=== PATIENT | female | born 1925 | race Caucasian/White ===

== ENCOUNTER → 2016-05-14 | Outpatient (CLI) | payer OTHER ==
[~2016-05-14] MED LIST: AMOX875T PO; MULT-190 PO; MULT-506 PO; OMEG10007 PO
--- NOTE | 2016-05-14 12:19 | DIAGNOSTIC IMAGING REPORT ---
CHEST 2 VIEWS ROUTINE CLINICAL HISTORY: Acute upper respiratory infection COMPARISON STUDY: 01/16/2014 FINDINGS: The cardiac and mediastinal contours are normal. There is no evidence of focal pulmonary consolidation. There is no evidence of failure. No pleural effusions are visualized.[ There is a calcified right lower lung zone granuloma. There is a thoracolumbar scoliosis. IMPRESSION: No active disease in the chest. Electronically signed by: Cory Mendes M.D. 05/14/2016 12:17 PM Dictated Date/Time: 05/14/2016 12:17 PM
== END | disposition home or self-care (01) ==
LOC: C.RADBC 12:08
PROVIDERS: ATTEND Internal Medicine Geriatric Medicine
DX: J06.9 Acute upper respiratory infection, unspecified (principal)

== ENCOUNTER → 2016-05-24 | Outpatient (CLI) | payer OTHER ==
--- NOTE | 2016-05-24 09:56 | DIAGNOSTIC IMAGING REPORT ---
LEFT FOURTH FINGER RADIOGRAPHS CLINICAL HISTORY: Closed fracture of left fourth finger. COMPARISON: Left fourth finger radiographs May 06, 2016. FINDINGS: A fracture of the dorsal base of the distal phalanx of the left fourth finger is again noted. Fracture is minimally displaced. Alignment is unchanged since prior exam. Minimal interval healing is noted with minimal callus formation. IMPRESSION: No change in alignment of the minimally displaced fracture of the dorsal base of the distal phalanx of the left fourth finger. Minimal interval healing. Electronically signed by: Oscar Isbell M.D. 05/24/2016 9:54 AM Dictated Date/Time: 05/24/2016 9:52 AM
== END | disposition home or self-care (01) ==
LOC: C.RDSM 15:04
PROVIDERS: ATTEND Physical Medicine & Rehabilitation Sports Medicine
DX: S62.601A Fracture of unspecified phalanx of left index finger, initial encounter for closed fracture (principal); X58.XXXA Exposure to other specified factors, initial encounter

== ENCOUNTER → 2016-05-31 | Outpatient (CLI) | payer OTHER ==
--- NOTE | 2016-05-31 16:47 | MAMMOGRAPHY REPORT ---
BILATERAL DIGITAL SCREENING MAMMOGRAM WITH CAD: 05/31/2016 CLINICAL HISTORY: Routine screening. Patient has no complaints. TECHNIQUE: Bilateral CC and MLO views were obtained. Current study was also evaluated with a Comput er Aided Detection (CAD) system. COMPARISON: Comparison is made to exams dated: 05/29/2015 mammogram, 05/20/2014 mammogram, 07/06/2013 mammogram, 07/06/2012 mammogram, 06/26/2009 mammogram - [facility], and 02/08/2008. BREAST COMPOSITION: There are scattered areas of fibroglandular density in both breasts. FINDINGS: An asymmetry in the medial right breast appears very similar to the 07/03/2012 and 014 mammograms, most likely benign fibroglandular tissue. There are scattered benign round and coar se calcifications and mild vascular calcifications in the breasts. No suspicious mass, architectura l distortion or cluster of microcalcifications is seen. IMPRESSION: ACR BI-RADS CATEGORY 1: NEGATIVE There is no mammographic evidence of malignancy. A 1 year screening mammogram is recommended. The p atient will receive written notification of the results. Approximately 10% of breast cancers are not detected with mammography. A negative mammographic repor t should not delay biopsy if a clinically suggestive mass is present. Berna Ronquillo M.D. ay/:05/31/2016 15:09:02 Sweat Box Attendant: Paola LEMOS(R)(M), [facility] letter sent: Normal 1/2 BI-RADS Code: ACR BI-RADS Category 1: Negative
== END | disposition home or self-care (01) ==
LOC: C.MAMM 12:02
PROVIDERS: ATTEND Internal Medicine
DX: Z12.31 Encounter for screening mammogram for malignant neoplasm of breast (principal)

== ENCOUNTER → 2016-09-02 | Outpatient (CLI) | payer OTHER ==
[~2016-09-02] MED LIST changes: +ESCI1TAB10 PO; +TRAMTAB5 PO
== END | disposition home or self-care (01) ==
LOC: C.PATHSPEC 17:12
PROVIDERS: ATTEND Urology
DX: C67.9 Malignant neoplasm of bladder, unspecified (principal); R82.99 Other abnormal findings in urine

== ENCOUNTER 2016-09-14 08:17 | Emergency (ER) | payer OTHER ==
[~2016-09-14] VITALS: Ht 152.4 cm; Wt 53.7 kg
[~2016-09-14 08:17] MED LIST changes: -AMOX875T PO; -ESCI1TAB10 PO; -TRAMTAB5 PO
[2016-09-14 08:22] VITALS: TEMP 36.9; Ht 152.4 cm; Wt 53.7 kg
[2016-09-14] MEDS ORDERED: SODIUM CHLORIDE 0.9% 1000ML 250 ML IV STA (08:25)
[2016-09-14] MEDS ORDERED: SODIUM CHLORIDE 0.9% 1000ML 1,000 ML IV STA (08:25)
--- NOTE | 2016-09-14 08:33 | EMERGENCY ROOM VISIT NOTE ---
History Report prepared by Carrie: Brian Mast Under the Supervision of: Dr. Meño Poon M.D. First contact with patient: 08:18 Stated Complaint: HEMATURIA History of Present Illness The patient is a 89 year old female who presents to the Emergency Room with complaints of persistent hematuria beginning last night. She states that she noticed "large blood clots" in her urine last night. She states that she had one episode of difficulty urinating shortly prior to arrival. The patient is not on any blood thinners. She denies any burning with urination. She states that she has been urinating frequently, but not more frequently than usual. The patient denies any back pain, numbness, weakness, nausea, vomiting, diarrhea, fevers, or chills. She notes that she has a history of bladder cancer occurring over 10 years ago. She states that she received IV chemotherapy at the time, but did not require surgery. The patient notes that her bladder was checked two weeks ago and appeared normal. Source of History: patient Onset: Last night Quality: other (hematuria) Timing: other (persistent) Associated Symptoms: + urinary symptoms (burning with urination), No back pain, No chills, No diarrhea, No fevers, No nausea, No numbness, No vomiting, No weakness Note: The patient denies any increased urinary frequency. Review of Systems See HPI for pertinent positives & negatives. A total of 10 systems reviewed and were otherwise negative. Past Medical & Surgical Medical Problems: (1) Bladder cancer (2) Contusion of multiple sites (3) Fall (4) Olecranon fracture (5) Olecranon fracture (6) syncope, bradycardia, hypotensive (7) Traumatic hematoma of face (8) Traumatic hematoma of face Old medical records were reviewed. Nurse's notes were reviewed and I agree with. Family History FH: alcoholism Social History Smoking Status: Never Smoker Drug Use: none Marital Status: single Housing Status: lives alone Occupation Status: retired Current/Historical Medications Scheduled Amoxicillin & Pot Clavulanate (Augmentin 875-125 mg), 875 MG PO BID Fish Oil ([place]-3), 1,200 MG PO BID Multivitamin (Multivitamin), 1 TAB PO QPM Ocuvite Preservision (Ocuvite Preservision), 1 TAB PO DAILY Allergies Coded Allergies: Grass (Verified Allergy, Mild, nasal congestion, 09/14/16) Adhesives (Verified Allergy, Unknown, skin irritation, 09/14/16) Codeine (Verified Adverse Reaction, Unknown, NAUSEA,FAINT,SWEAT, 09/14/16) Morphine (Verified Adverse Reaction, Unknown, "FEELS WEIRD", 09/14/16) Physical Exam Vital Signs Date Time Temp Pulse Resp B/P Pulse Ox O2 Delivery O2 Flow Rate FiO2 09/14/16 12:22 62 16 137/88 98 09/14/16 11:04 58 18 141/94 97 Room Air 09/14/16 10:10 57 18 134/79 97 Room Air 09/14/16 08:22 36.9 72 18 158/94 99 Room Air Physical Exam General: Well developed, well nourished, non-ill appearing older female in no acute distress, breathing comfortably on room air. Normal speech HEENT: Normal cephalic atraumatic. Pupils are equal round and reactive to light. Extraocular movements are intact. Oropharynx is pink with moist mucous membranes. No swelling of the mouth lips or tongue. Neck: Supple with a midline trachea. No meningeal signs or stiffness, no JVD or bruits. No Stridor. Chest: Clear to auscultation bilaterally. No wheezes or rhonchi. No increased work of breathing. Heart: regular rate and rhythm. Abdomen: Soft nontender, nondistended without rebound guarding or rigidity. Extremities: No cyanosis clubbing or edema. No calf tenderness or assymetry Spine/Back. Non tender to palpation. No CVA tenderness Skin: Good turgor without rashes. Neurologic exam: Cranial nerves two through 12 are intact. Motor and sensation are intact and symmetrical throughout. Medical Decision & Procedures Laboratory Results 09/14/16 08:35 Red Blood Count 4.54, Mean Corpuscular Volume 91.0, Mean Corpuscular Hemoglobin 31.3, Mean Corpuscular Hemoglobin Concent 34.4, Mean Platelet Volume 9.2, Neutrophils (%) (Auto) 67.4, Lymphocytes (%) (Auto) 25.0, Monocytes (%) (Auto) 5.8, Eosinophils (%) (Auto) 0.5, Basophils (%) (Auto) 1.1, Neutrophils # (Auto) 3.73, Lymphocytes # (Auto) 1.38, Monocytes # (Auto) 0.32, Eosinophils # (Auto) 0.03, Basophils # (Auto) 0.06 09/14/16 08:35 Test 09/14/16 08:35 09/14/16 09:33 White Blood Count 5.53 K/uL (4.8-10.8) Red Blood Count 4.54 M/uL (4.2-5.4) Hemoglobin 14.2 g/dL (12.0-16.0) Hematocrit 41.3 % (37-47) Mean Corpuscular Volume 91.0 fL (80-100) Mean Corpuscular Hemoglobin 31.3 pg (25-34) Mean Corpuscular Hemoglobin Concent 34.4 g/dl (32-36) Platelet Count 211 K/uL (130-400) Mean Platelet Volume 9.2 fL (7.4-10.4) Neutrophils (%) (Auto) 67.4 % Lymphocytes (%) (Auto) 25.0 % Monocytes (%) (Auto) 5.8 % Eosinophils (%) (Auto) 0.5 % Basophils (%) (Auto) 1.1 % Neutrophils # (Auto) 3.73 K/uL (1.4-6.5) Lymphocytes # (Auto) 1.38 K/uL (1.2-3.4) Monocytes # (Auto) 0.32 K/uL (0.11-0.59) Eosinophils # (Auto) 0.03 K/uL (0-0.5) Basophils # (Auto) 0.06 K/uL (0-0.2) RDW Standard Deviation 41.8 fL (36.4-46.3) RDW Coefficient of Variation 12.5 % (11.5-14.5) Immature Granulocyte % (Auto) 0.2 % Immature Granulocyte # (Auto) 0.01 K/uL (0.00-0.02) Prothrombin Time 10.7 SECONDS (9.0-12.0) Prothromb Time International Ratio 1.0 (0.9-1.1) Activated Partial Thromboplast Time 25.2 SECONDS (21.0-31.0) Partial Thromboplastin Ratio 1.0 Anion Gap 6.0 mmol/L (3-11) Est Creatinine Clear Calc Drug Dose 45.7 ml/min Estimated GFR () 93.7 Estimated GFR (Non- 80.8 BUN/Creatinine Ratio 18.5 (10-20) Calcium Level 9.5 mg/dl (8.5-10.1) Total Bilirubin 1.0 mg/dl (0.2-1) Direct Bilirubin mg/dl (0-0.2) Aspartate Amino Transf (AST/SGOT) 29 U/L (15-37) Alanine Aminotransferase (ALT/SGPT) 21 U/L (12-78) Alkaline Phosphatase 64 U/L (45-117) Total Protein 7.4 gm/dl (6.4-8.2) Albumin 3.8 gm/dl (3.4-5.0) Lipase 177 U/L (73-393) Urine Color RED Urine Appearance TURBID (CLEAR) Urine pH 8.5 (4.5-7.5) Urine Specific [place] 1.020 (1.000-1.030) Urine Protein 2+ (NEG) Urine Glucose (UA) NEG (NEG) Urine Ketones NEG (NEG) Urine Occult Blood 3+ (NEG) Urine Nitrite NEG (NEG) Urine Bilirubin NEG (NEG) Urine Urobilinogen NEG (NEG) Urine Leukocyte Esterase NEG (NEG) Urine RBC >30 /hpf (0-4) Urine WBC 1-5 /hpf (0-5) Urine Epithelial Cells 5-10 /lpf (0-5) Urine Bacteria 1+ (NEG) Laboratory studies as stated above per my review. Medications Administered Medications (Trade) Dose Ordered Sig/Rebecca Route Start Time Stop Time Status Last Admin Dose Admin Sodium Chloride 250 ml @ 999 mls/hr Q16M STAT IV 09/14/16 08:25 09/14/16 08:40 DC 09/14/16 08:53 999 MLS/HR Sodium Chloride (Nss 1000ml) 1,000 ml @ 100 mls/hr Q10H STAT IV 09/14/16 08:25 09/14/16 12:33 DC 09/14/16 09:14 100 MLS/HR Amoxicillin/ Clavulanate Potassium (Augmentin 875MG Home Pack) 1 homepack UD ONCE PO 09/14/16 11:00 09/14/16 11:01 DC 09/14/16 12:09 1 HOMEPACK ED Course 0819: Past medical records reviewed. The patient was evaluated in room A2, and a complete history and physical examination were performed. 0825: Ordered Sodium Chloride 1000 ml @ 100 mls/hr IV, Sodium Chloride 250 ml @ 999 mls/hr IV. 0835: A bladder scan revealed 108 cc of urine. The patient informed me that she had a normal cystoscopy two weeks ago. 0935: I reassessed the patient. A Vasquez catheter has been placed, and is draining bloody urine. 1017: I checked in on the patient. She is resting comfortably. 1100: Ordered Augmentin 875 mg home pack PO. 1105: Upon reevaluation, the patient is resting comfortably. I discussed the results and treatment plan with her. She verbalized agreement of the treatment plan. The patient was discharged home. Medical Decision Differentials include, but are not limited to; UTI, hematuria, anemia, bladder cancer, and kidney stone. This patient comes in as described above. She does have hematuria. She looks well on exam and is afebrile. She has no flank tenderness. She has a history of bladder cancer. She is on no blood thinners. Her abdomen is benign. IV access established, blood work and urine was obtained. She was hydrated gently. Bladder scan was also obtained to rule out any obstruction. She was reassessed frequently. I did call and talk to Shanae Pérez from urology this patient did indeed have cystoscopy done 2 weeks ago which showed no lesions therefore the hematuria is unlikely related to cancer. She has no pain to suggest kidney stone. Most likely this is a hemorrhagic cystitis. Hemoglobin is stable. She has nothing to suggest sepsis. I will start her on Keflex antibiotic coverage. Culture is pending. She should rest and drink plenty of fluids. Return if: Worsening of symptoms, fever or chills, not tolerating fluids, any new problems concerns. She was happy with plan and discharged to home. Consults Time Called: 1018 Consulting Physician: Shanae Pérez PA-C -Urology Returned Call: [phone] I discussed the patient's case with Shanae Pérez. She states that the patient had a cystoscopy two weeks ago which was normal. She recommends antibiotics. Impression Primary Impression: Hemorrhagic cystitis Additional Impression: Hematuria Scribe Attestation The scribe's documentation has been prepared under my direction and personally reviewed by me in its entirety. I confirm that the note above accurately reflects all work, treatment, procedures, and medical decision making performed by me. Departure Information Dispostion Home / Self-Care Prescriptions Amoxicillin & Pot Clavulanate (Augmentin 875-125 mg) 1 Tab Tab 875 MG PO BID for 7 Days, #14 TAB Prov: Meño Poon M.D. 09/14/16 Referrals Fox Paez M.D. (PCP) Forms HOME CARE DOCUMENTATION FORM, IMPORTANT VISIT INFORMATION Patient Instructions My Independent Space Additional Instructions Rest. Drink plenty of fluids. Use Augmentin 875 mg twice a day for 7 days Return if: Fever, abdominal or back pain, worsening symptoms, increasing bleeding, unable to urinate, vomiting, not tolerating fluids, any new problems or concerns. Follow-up with your doctor or urologist in 1-2 days for recheck. Return to the ER if symptoms worsen Problem Qualifiers
[2016-09-14 08:45] LABS: BASO % 1.1 %; BASO ABS # 0.06 K/uL (0-0.2); COMPLETE YES; EOS % 0.5 %; HEMATOCRIT 41.3 % (37-47); IG% 0.2 %; LYMPH ABS # 1.38 K/uL (1.2-3.4); MEAN CORPUSCULAR HEMOGLOBIN 31.3 pg (25-34); MEAN CORPUSCULAR HGB CONC 34.4 g/dl (32-36); MEAN PLATELET VOLUME 9.2 fL (7.4-10.4); MONO % 5.8 %; NEUT % 67.4 %; PLATELET COUNT 211 K/uL (130-400); RED BLOOD COUNT 4.54 M/uL (4.2-5.4); WHITE BLOOD COUNT 5.53 K/uL (4.8-10.8)
[2016-09-14 08:55] LABS: PROTHROMBIN TIME (PATIENT) 10.7 SECONDS (9.0-12.0)
[2016-09-14 09:11] LABS: BLOOD UREA NITROGEN 11 mg/dl (7-18); GLUCOSE 111 mg/dl (70-99)
[2016-09-14 09:12] LABS: ALKALINE PHOSPHATASE 64 U/L (45-117); ALT/SGPT 21 U/L (12-78); AST/SGOT 29 U/L (15-37); BUN/CREATININE RATIO 18.5 (10-20); CALCIUM 9.5 mg/dl (8.5-10.1); CARBON DIOXIDE 30 mmol/L (21-32); CHLORIDE 100 mmol/L (98-107); POTASSIUM 3.9 mmol/L (3.5-5.1); SODIUM 136 mmol/L (136-145)
[2016-09-14 09:57] LABS: MANUAL MICROSCOPIC REQUIRED? YES; URINE APPEARANCE TURBID (CLEAR); URINE BILIRUBIN NEG (NEG); URINE COLOR RED; URINE NITRITE NEG (NEG); URINE PH 8.5 (4.5-7.5); UROBILINOGEN NEG (NEG)
[2016-09-14 09:58] LABS: REVIEW REQ? NO; SULFASALICYLIC ACID POS (NEG)
[2016-09-14 10:00] LABS: URINE BACTERIA 1+ (NEG); URINE RBC >30 /hpf (0-4)
[2016-09-14] MEDS ORDERED: AMOXICIL/CLAVU 875MG HOME PACK PO ONE (11:00)
[2016-09-14] MEDS ORDERED: AMOX875T PO (11:02)
[2016-09-14 12:22] VITALS: BP 137/88; PULSE 62; O2SAT 98
[2017-03-24] MEDS ORDERED: ESCI1TAB10 PO (11:51)
[2017-04-04] MEDS ORDERED: TRAMTAB5 PO (08:55)
== END 2016-09-14 12:27 | disposition home or self-care (01) ==
LOC: EDBD 08:17 → C.EDA 08:18
DX: N30.90 Cystitis, unspecified without hematuria (principal); R31.9 Hematuria, unspecified; Z85.51 Personal history of malignant neoplasm of bladder; Z79.899 Other long term (current) drug therapy

== ENCOUNTER → 2016-09-21 | Outpatient (CLI) | payer OTHER ==
[~2016-09-21] MED LIST changes: +AMOX875T PO; +ESCI1TAB10 PO; +TRAMTAB5 PO
== END | disposition home or self-care (01) ==
LOC: C.LABSPEC 17:23 → C.PATHSPEC 17:43
PROVIDERS: ATTEND Urology
DX: R31.9 Hematuria, unspecified (principal)

== ENCOUNTER → 2016-09-28 | Outpatient (CLI) | payer OTHER ==
[~2016-09-28] MED LIST changes: -AMOX875T PO
--- NOTE | 2016-09-28 12:18 | DIAGNOSTIC IMAGING REPORT ---
RENAL ULTRASOUND HISTORY: Hematuria R31.9 Hematuria COMPARISON: None. FINDINGS: Right kidney: Maximum dimension 9.5 cm. Moderate right renal hydronephrosis. Normal corticomedullary differentiation and cortical thickness. Left kidney: Maximum dimension 10.2 cm. No evidence for hydronephrosis. Normal corticomedullary differentiation and cortical thickness. Bladder: No bladder wall thickening. The bilateral ureteral jets were identified. IMPRESSION: Right renal hydronephrosis. Electronically signed by: Oc Espinoza M.D. 09/28/2016 12:17 PM Dictated Date/Time: 09/28/2016 12:16 PM
== END | disposition home or self-care (01) ==
LOC: C.ULTR 11:37
PROVIDERS: ATTEND Urology
DX: R31.9 Hematuria, unspecified (principal)

== ENCOUNTER → 2016-10-08 | Outpatient (CLI) | payer OTHER ==
[~2016-10-08] MED LIST changes: +OPTIRAY 320 IV PRN
--- NOTE | 2016-10-09 13:56 | DIAGNOSTIC IMAGING REPORT ---
CT OF THE ABDOMEN AND PELVIS WITH AND WITHOUT CONTRAST HEMATURIA PROTOCOL CLINICAL HISTORY: Hematuria. History of bladder cancer. COMPARISON STUDY: CT of the abdomen and pelvis March 29, 2011, IVP May 23, 2012 and renal ultrasound September 28, 2016. TECHNIQUE: Unenhanced and split bolus phase imaging of the abdomen and pelvis was performed. Injection of 93 cc Optiray [address] DOSE: 880.96 mGycm FINDINGS: Moderate cardiomegaly is noted. The liver, adrenal glands and pancreas are unremarkable. There are numerous granulomas within the spleen. 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 Evaluation of the bladder is essentially nondiagnostic. Moderate right hydronephrosis is present. This is mildly increased since exam of March 29, 2011. The caliber of the right ureter is normal. No urothelial lesion is identified within the upper tracts although opacification is suboptimal given collecting system dilatation. A few renal cysts are noted. There is no evidence for a bowel obstruction. There is no lymphadenopathy. Suspected bladder wall thickening is noted but difficult to assess on this exam. No suspicious skeletal lesions are present. Levoscoliosis is noted within the lumbar spine with multiple old mild compression deformities. IMPRESSION: 1. Moderate right hydronephrosis with normal caliber right ureter. Collecting system dilatation has been shown on prior exams but the degree of dilatation is increased since CT of March 29, 2011. 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 2. 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 Suspected mild bladder wall thickening. 3. No evidence of metastatic disease within the abdomen or pelvis. 4. No urinary calculi. Electronically signed by: Oscar Isbell M.D. 10/09/2016 1:55 PM Dictated Date/Time: 10/08/2016 11:47 AM
== END | disposition home or self-care (01) ==
LOC: C.CTS 10:56
PROVIDERS: ATTEND Nurse Practitioner Family
DX: C67.9 Malignant neoplasm of bladder, unspecified (principal); R31.29 Other microscopic hematuria; N13.30 Unspecified hydronephrosis

== ENCOUNTER → 2016-10-21 | Outpatient (CLI) | payer OTHER ==
[~2016-10-21] MED LIST changes: -OPTIRAY 320 IV PRN
--- NOTE | 2016-10-21 11:33 | DIAGNOSTIC IMAGING REPORT ---
ABDOMEN ULTRASOUND FOR HERNIA CLINICAL HISTORY: R19.03 Right lower quadrant abdominal swelling, mass and lumpsch COMPARISON STUDY: Abdomen and pelvis CT 10/08/2016. FINDINGS: No right inguinal hernia identified. No masses or fluid collections within the right groin. IMPRESSION: No sonographic abnormality within the right inguinal region. Electronically signed by: Horacio Corrales M.D. 10/21/2016 11:32 AM Dictated Date/Time: 10/21/2016 11:31 AM
== END | disposition home or self-care (01) ==
LOC: C.ULTRBC 11:04
PROVIDERS: ATTEND Physician Assistant Medical
DX: R19.03 Right lower quadrant abdominal swelling, mass and lump (principal)

== ENCOUNTER 2017-04-04 06:29 | Day surgery (SDC) | payer OTHER ==
[2017-03-24 11:57] VITALS: BMI 23.0
--- NOTE | 2017-03-24 12:24 | PAT Medication Instructions ---
Service Date Mar 24, 2017. Current Home Medication List Escitalopram Oxalate (Lexapro), 0.5 TAB PO QAM Fish Oil ([place]-3), 1,200 MG PO BID Multivitamin (Multivitamin), 1 TAB PO QPM Ocuvite Preservision (Ocuvite Preservision), 1 TAB PO QAM Medication Instructions For Your Scheduled Surgery - Hold the following medications starting 03/24/17: Fish Oil ([place]-3), 1,200 MG PO BID - Hold the following medications the morning of surgery: Ocuvite Preservision (Ocuvite Preservision), 1 TAB PO QAM - Take the following medications the morning of surgery with a sip of water: Escitalopram Oxalate (Lexapro), 0.5 TAB PO QAM - Take the following medications as scheduled the night before surgery: Multivitamin (Multivitamin), 1 TAB PO QPM If you have any questions please call us at [phone] or [phone] or [phone]
[2017-03-24 13:36] LABS: BASO % 0.8 %; BASO ABS # 0.04 K/uL (0-0.2); EOS % 0.8 %; EOS ABS # 0.04 K/uL (0-0.5); HEMATOCRIT 36.8 % (37-47); HEMOGLOBIN 12.6 g/dL (12.0-16.0); LYMPH % 25.5 %; LYMPH ABS # 1.33 K/uL (1.2-3.4); MEAN CELL VOLUME 90.4 fL (80-100); MEAN CORPUSCULAR HGB CONC 34.2 g/dl (32-36); MEAN PLATELET VOLUME 9.4 fL (7.4-10.4); MONO % 5.8 %; NEUT % 67.1 %; PLATELET COUNT 185 K/uL (130-400); RED CELL DISTRIBUTION WIDTH CV 12.7 % (11.5-14.5); RED CELL DISTRIBUTION WIDTH SD 41.9 fL (36.4-46.3); WHITE BLOOD COUNT 5.21 K/uL (4.8-10.8)
[2017-03-24 13:58] LABS: CREATININE 0.44 mg/dl (0.60-1.20)
[~2017-04-04] VITALS: Ht 152.4 cm; Wt 53.8 kg
[~2017-04-04 06:29] MED LIST changes: +CIPROFLOXACIN / D5W 400 MG IV SCH; +CIPROFLOXACIN 400MG / D5W IV SCH; +LACTATED RINGER'S 1000ML 1,000 ML IV SCH; -TRAMTAB5 PO
[2017-04-04] MEDS ORDERED: FENTANYL CITRATE INJ 50 MCG/1 ML 2 ML VIAL IV PRN (07:15)
[2017-04-04] MEDS ORDERED: ONDANSETRON INJ 2 MG/ML 2 ML VIAL IV PRN (07:15)
[2017-04-04] MEDS ORDERED: ATROPINE SULFATE 0.1 MG/ML 5ML SYR IV PRN (07:15)
[2017-04-04] MEDS ORDERED: EpHEDrine SULFATE INJ 50 MG/ML AMP IV PRN (07:15)
[2017-04-04] MEDS ORDERED: HYDROmorphone INJ 1 MG/ML SYR IV PRN (07:15)
[2017-04-04 07:16] VITALS: BP 150/74; PULSE 72; TEMP 36.7; O2SAT 96; Ht 152.4 cm; Wt 53.8 kg
[2017-04-04] MEDS ORDERED: ONDANSETRON INJ 2 MG/ML 2 ML VIAL ONE (07:34)
[2017-04-04] MEDS ORDERED: PROPOFOL IV EMULSION 10 MG/ML 20 ML VIAL IV ONE (07:34)
[2017-04-04] MEDS ORDERED: LIDOCAINE HCL 2% 2 ML VIAL (20MG/ML) ONE (07:34)
[2017-04-04] MEDS ORDERED: DEXAMETHASONE SOD INJ 4 MG/ML VIAL ONE (07:34)
[2017-04-04] MEDS ORDERED: MIDAZOLAM HCL 1 MG/ML 2ML VIAL ONE (07:34)
[2017-04-04] MEDS ORDERED: FENTANYL CITRATE INJ 50 MCG/1 ML 2 ML VIAL ONE (07:35)
--- NOTE | 2017-04-04 07:54 | History & Physical Bridge Note ---
H&P Re-Evaluation Bridge Note: I have examined the patient, reviewed the History & Physical and in the interval since the performance of the History & Physical I have noted the following changes of clinical significance: No changes noted
[2017-04-04] MEDS ORDERED: CONRAY 30% 150ML BOTTLE ONE (08:06)
[2017-04-04] MEDS ORDERED: EpHEDrine SULFATE 50MG/5ML SYR ONE (08:30)
[2017-04-04] MEDS ORDERED: TRAMTAB5 PO (08:55)
--- NOTE | 2017-04-04 08:57 | Discharge Instructions ---
Discharge Instructions Date of Service Apr 04, 2017. Visit Reason for Visit: Bladder Cancer Discharge Discharge Diagnosis / Problem: hydronephrosis and bladder tumors Discharge Goals Goal(s): Therapeutic intervention Activity Recommendations Activity Limitations: resume your previous activity Exercise/Sports Limitations: rest today Shower/Bathe: no limitations Driving or Machine Use: resume 1 day after discharge Anesthesia . Post Anesthesia Instructions: If you have had General Anesthesia or IV Sedation: * Do not drive today. * Resume driving when surgeon permits. * Do not make important decisions or sign legal documents today. * Call surgeon for: 1. Temperature elevations greater than 101 degrees F. 2. Uncontrollable pain. 3. Excessive bleeding. 4. Persistent nausea and vomiting. 5. Medication intolerance (nausea, vomiting or rash). * For nausea and vomiting use only clear liquids such as: tea, soda, bouillon until nausea subsides, then gradually increase diet as tolerated. * If you have any concerns or questions, call your surgeon's office. If physician is unavailable and it is an emergency, call 911 or go to the nearest emergency room. . Diet Recommendations Recommended Home Diet: resume previous diet Procedures Procedures Performed: Cystoscopy, Bladder Biopsy, Fulguration and Right Retrograde Pyelogram Pending Studies Studies pending at discharge: no Medical Emergencies . Who to Call and When: Medical Emergencies: If at any time you feel your situation is an emergency, please call 911 immediately. . Non-Emergent Contact Non-Emergency issues call your: Urologist Call Non-Emergent contact if: temperature is above 101.5, your pain is not controlled . . "Provider Documentation" section prepared by Morgan Muller. . [place] Drug Monitoring Program Search Results: patient reviewed within database
[2017-04-04] MEDS ORDERED: TRAMADOL/ACETAMINOPHEN 37.5/325MG TAB PO PRN (09:00)
--- NOTE | 2017-04-04 09:11 | [facility] Operative Report ---
Operative Report Operative Date Apr 04, 2017. Pre-Operative Diagnosis Bladder Neoplasm Post-Operative Diagnosis Bladder Neoplasm Procedure(s) Performed Cystoscopy, Bladder Biopsy, Fulguration and Right Retrograde Pyelogram Surgeon Renzo Hog Handler Surgeon(s) none Estimated Blood Loss 1CC Findings Cystoscopy showed a normal urethra and bladder showed several papillary tumors on the posterior wall and right lateral wall. 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 Complication(s) None Disposition Recovery Room / PACU Indications Patient's an 89-year-old white female who on evaluation for hematuria was found to have recurrent bladder tumors she also had worsening right hydronephrosis although this is asymptomatic she's being brought in for cystoscopy right retrograde and removal of the bladder tumors Description of Procedure After the induction of an adequate general anesthetic and appropriate timeout patient was placed in the dorsal lithotomy position. Lower abdomen and genitalia were prepped with Hibiclens draped in a sterile fashion. Using a 22 [place] cystoscope routine cystoscopic exam was performed with the above-noted findings with the 30 and 70 lenses. Next using a 4.8 [place] cone-tipped catheter right retrograde pyelogram was performed. I also used a 5 [place] open- ended catheter to fill out the renal pelvis with dye. Using cold cup biopsy forceps the bladder tumors were removed and the areas were fulgurated for hemostasis. Care was taken to avoid any injury to the ureteral orifices. After completing the tumor resections and fulguration patient's bladder was drained. Cystoscope and sheath removed. All needle sponge instrument counts were correct at the end of the case. Patient tolerated the procedure well and was taken to the recovery room in stable condition I attest to the content of the Intraoperative Record and any orders documented therein. Any exceptions are noted below.
--- NOTE | 2017-04-04 09:29 | Anesthesiology Progress Note ---
Anesthesia Post Op Note Date & Time Apr 04, 2017 at 09:28 Vital Signs Pain Intensity: 0 Vital Signs Past 12 Hours Date Time Temp Pulse Resp B/P (MAP) Pulse Ox O2 Delivery O2 Flow Rate FiO2 04/04/17 09:10 69 17 149/89 100 Mask 10 04/04/17 09:00 77 20 159/98 99 Mask 10 04/04/17 08:53 37.4 77 16 152/87 99 Mask 10 04/04/17 07:16 36.7 72 18 150/74 (99) 96 Room Air Notes Mental Status: alert / awake / arousable, participated in evaluation Pt Amnestic to Procedure: Yes Nausea / Vomiting: adequately controlled Pain: adequately controlled Airway Patency, RR, SpO2: stable & adequate BP & HR: stable & adequate Hydration State: stable & adequate Anesthetic Complications: no major complications apparent Awake, doing well. VSS.
[2017-04-04 09:40] VITALS: BP 138/85; PULSE 65; TEMP 36.8; O2SAT 96
[2017-04-04 10:10] VITALS: BP 155/74; PULSE 67; TEMP 36.4; O2SAT 95
--- NOTE | 2017-04-04 10:45 | DIAGNOSTIC IMAGING REPORT ---
RETROGRADE INCLUDES KUB CLINICAL HISTORY: RT RETROGRADE TECHNIQUE: Retrograde COMPARISON STUDY: CT abdomen and pelvis dated 10/08/2016 FINDINGS: Retrograde opacification of the right ureter shows a small air bubble on image 9. There is focal tortuosity of the proximal aspect of the ureter. Appears to be right renal hydronephrosis with a probable UPJ type defect. There is mild narrowing of the proximal right ureter superior to the right transverse process of L5. This is in part related to ureteral tortuosity. 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 Moderate right renal hydronephrosis. The above report was generated using voice recognition software. It may contain grammatical, syntax or spelling errors. Electronically signed by: Oc Espinoza M.D. 04/04/2017 10:44 AM Dictated Date/Time: 04/04/2017 10:42 AM
--- NOTE | 2017-04-06 12:30 | EDITING REQUIRED CODING QUERY ---
CODING CLARIFICATION Clarification is needed for the bladder biopsy for coding purposes: Please clarify below the size of the bladder tumor : (x ) MINOR (less than 0.5 cm) ( ) SMALL bladder tumor[s] (0.5 up to 2.0 cm) ( ) MEDIUM bladder tumor[s] (2.0 to 5.0 cm) ( ) LARGE bladder tumor[s] Thank you for your assistance, Randi Tovar - Kick Press Operator
== END 2017-04-04 10:24 | disposition home or self-care (01) ==
LOC: C.ACU 06:29
PROVIDERS: ATTEND Urology
DX: C67.9 Malignant neoplasm of bladder, unspecified (principal); M19.90 Unspecified osteoarthritis, unspecified site; K21.9 Gastro-esophageal reflux disease without esophagitis; E78.5 Hyperlipidemia, unspecified; I34.1 Nonrheumatic mitral (valve) prolapse; M75.41 Impingement syndrome of right shoulder; Z92.21 Personal history of antineoplastic chemotherapy; Z85.828 Personal history of other malignant neoplasm of skin; Z85.51 Personal history of malignant neoplasm of bladder; Z96.659 Presence of unspecified artificial knee joint; Z90.721 Acquired absence of ovaries, unilateral; Z96.649 Presence of unspecified artificial hip joint; Z90.710 Acquired absence of both cervix and uterus; Z87.891 Personal history of nicotine dependence

== ENCOUNTER → 2017-05-27 | Outpatient (CLI) | payer OTHER ==
[~2017-05-27] MED LIST changes: -CIPROFLOXACIN / D5W 400 MG IV SCH; -CIPROFLOXACIN 400MG / D5W IV SCH; -LACTATED RINGER'S 1000ML 1,000 ML IV SCH
--- NOTE | 2017-05-27 10:53 | DIAGNOSTIC IMAGING REPORT ---
L KNEE 4 OR MORE CLINICAL HISTORY: LEFT KNEE PAIN S/P FALL trauma. Pain. COMPARISON: None. DISCUSSION: Evidence for a right knee hemiarthroplasty involving the medial compartment. Considerable degenerative change medial compartment left knee. Mild degenerative change all remaining joint compartments. No acute posttraumatic abnormality. Generalized osteopenia. There is no evidence for soft tissue swelling. IMPRESSION: Generalized postoperative as well as degenerative change. Osteopenia. No acute bony abnormality. The above report was generated using voice recognition software. It may contain grammatical, syntax or spelling errors. Electronically signed by: Oc Espinoza M.D. 05/27/2017 10:52 AM Dictated Date/Time: 05/27/2017 10:50 AM
== END | disposition home or self-care (01) ==
LOC: C.RDSM 11:50
PROVIDERS: ATTEND Physician Assistant
DX: S89.92XA Unspecified injury of left lower leg, initial encounter (principal); X58.XXXA Exposure to other specified factors, initial encounter; M17.12 Unilateral primary osteoarthritis, left knee; M85.862 Other specified disorders of bone density and structure, left lower leg

== ENCOUNTER → 2017-05-31 | Outpatient (CLI) | payer OTHER | END | disposition home or self-care (01) | LOC: C.LAB 11:12 | PROVIDERS: ATTEND Nurse Practitioner Adult Health | DX: R35.0 Frequency of micturition (principal); R39.15 Urgency of urination ==

== ENCOUNTER → 2017-06-01 | Outpatient (CLI) | payer OTHER ==
--- NOTE | 2017-06-01 15:41 | MAMMOGRAPHY REPORT ---
BILATERAL DIGITAL SCREENING MAMMOGRAM TOMOSYNTHESIS WITH CAD: 06/01/2017 CLINICAL HISTORY: Routine screening. TECHNIQUE: Breast tomosynthesis in addition to standard 2D mammography was performed. Current study was also evaluated with a Computer Aided Detection (CAD) system. COMPARISON: Comparison is made to exams dated: 05/31/2016 mammogram, 05/29/2015 mammogram, 05/20/2014 m ammogram, 07/06/2013 mammogram, 01/05/2013 mammogram, and 07/03/2012 mammogram - [facility] enter. BREAST COMPOSITION: There are scattered areas of fibroglandular density in both breasts. FINDINGS: No suspicious masses, calcifications, or areas of architectural distortion are noted in ei ther breast. There has been no significant interval change compared to prior exams. Bilateral benign -appearing calcifications are not significantly changed, including grouped calcifications in the righ t subareolar breast which are not significantly changed dating back to at least the 2011 and 2012 exa ms. IMPRESSION: ACR BI-RADS CATEGORY 2: BENIGN There is no mammographic evidence of malignancy. A 1 year screening mammogram is recommended. The pa tient will receive written notification of the results. Approximately 10% of breast cancers are not detected with mammography. A negative mammographic report should not delay biopsy if a clinically suggestive mass is present. Saima Norwood M.D. /:06/01/2017 12:49:00 Floor Service Worker [place]: Dee NIELSEN)(M), [facility] letter sent: Normal 1/2 BI-RADS Code: ACR BI-RADS Category 2: Benign
== END | disposition home or self-care (01) ==
LOC: C.MAMM 12:00
PROVIDERS: ATTEND Internal Medicine
DX: Z12.31 Encounter for screening mammogram for malignant neoplasm of breast (principal)

== ENCOUNTER → 2017-06-03 | Outpatient (CLI) | payer OTHER ==
--- NOTE | 2017-06-03 14:05 | DIAGNOSTIC IMAGING REPORT ---
SI JOINTS 3 OR MORE VIEWS HISTORY: 89 years-old Female M54.5 Lumbar back [id number] chronic low back pain without reported injury or trauma COMPARISON: Lumbar spine radiographs of same day TECHNIQUE: 3 views of the SI joints FINDINGS: Bones appear moderately demineralized. Levoscoliosis of the lumbar spine is partially imaged. Severe degenerative changes of the imaged lumbar spine. Bilateral hip arthroplasties. Moderate degenerative changes of the SI joints. No acute fracture or subluxation identified. No definite sacral insufficiency fracture is seen. IMPRESSION: Osteoporotic appearance of the bones without acute fracture or subluxation identified. The above report was generated using voice recognition software. It may contain grammatical, syntax or spelling errors. Electronically signed by: Jone Richardson M.D. 06/03/2017 2:04 PM Dictated Date/Time: 06/03/2017 2:01 PM
--- NOTE | 2017-06-03 14:08 | DIAGNOSTIC IMAGING REPORT ---
L-SPINE MIN 4 VIEWS ROUTINE CLINICAL HISTORY: Lumbar back pain. COMPARISON: Lumbar spine radiographs January 06, 2010. FINDINGS: Moderate levoscoliosis of the lumbar spine has significantly progressed since exam of January 06, 2010. There is 30 degrees of levoscoliosis of the lumbar spine. Note is made of moderate dextroscoliosis of the lower thoracic spine. Mild loss of height of the superior endplates of L1 and L2 is chronic. No acute fracture is identified. 1.5 cm of anterolisthesis of L5 on S1 is similar to prior exam. This is due to bilateral L5 pars defects. 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 Bilateral hip arthroplasties are partially imaged. IMPRESSION: 1. Significant progression of moderate S-shaped scoliosis of the thoracolumbar spine since exam of January 06, 2010. 2. No acute lumbar spine fracture. No change in mild compression deformities involving the superior endplates of L1 and L2. 3. Severe multilevel disc space narrowing with osteophytosis and vacuum disc phenomenon with severe multilevel facet arthrosis. 4. 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 Electronically signed by: Oscar Isbell M.D. 06/03/2017 2:06 PM Dictated Date/Time: 06/03/2017 2:01 PM
== END | disposition home or self-care (01) ==
LOC: C.RADBC 13:19
PROVIDERS: ATTEND Family Medicine Adult Medicine
DX: M54.5 Low back pain (principal)